=== PATIENT | female | born 1940 | race Asian ===

== ENCOUNTER 2019-12-11 18:26 | Emergency (ER) | payer MEDICARE, OTHER ==
[~2019-12-11] VITALS: Ht 149.9 cm; Wt 49.5 kg
[~2019-12-11 18:26] MED LIST: ALBU8HFA IH; AMLO10TA55 PO; ASPI81TA40 PO; BECL8.7A7 IH; CALC-26 PO; IBAN150T21 PO; LEVO25TA9 PO; LORA10TA7 PO; MAGN250T2 PO; METO-391 PO; METO25 PO; NITR0.4T50 SL; OMEP20 PO
[2019-12-11] MEDS ORDERED: BECL10.62 IH (18:52)
[2019-12-11] MEDS ORDERED: LIDOCAINE 1% 10 ML VIAL INJ ONE (19:00)
[2019-12-11 19:37] VITALS: BP 134/80
== END 2019-12-11 19:39 | disposition home or self-care (01) ==
LOC: EMS 18:26
DX: L03.011 Cellulitis of right finger (principal); I10 Essential (primary) hypertension; E78.00 Pure hypercholesterolemia, unspecified; E03.9 Hypothyroidism, unspecified; Z79.82 Long term (current) use of aspirin
CPT/HCPCS: 99283; J3490

== ENCOUNTER 2021-06-16 14:21 | Emergency (ER) | payer MEDICARE, OTHER ==
[~2021-06-16] VITALS: Ht 152.4 cm; Wt 50.9 kg
[~2021-06-16 14:21] MED LIST changes: +BECL10.62 IH; -BECL8.7A7 IH
[2021-06-16 14:26] VITALS: BP 135/97
[2021-06-16] MEDS ORDERED: HydrOXYzine PAMOATE 25 MG CAPSULE PO ONE (15:00)
[2021-06-16 15:23] LABS: BASOPHILS % (AUTO) 0.7 % (0.0-2.0); EOSINOPHILS % (AUTO) 0.6 % (1.0-6.0); HEMATOCRIT 46.5 % (36-46); HEMOGLOBIN 15.3 g/dL (12.0-16.0); LYMPHOCYTES # (AUTO) 1.4 K/uL (1.0-4.8); LYMPHOCYTES % (AUTO) 19.8 % (22.0-44.0); MEAN CORPUSCULAR HEMOGLOBIN 30.3 pg (26.0-34.0); MEAN CORPUSCULAR HGB CONC 32.8 G/dL (31.0-37.0); MEAN CORPUSCULAR VOLUME 92 fL (80-100); MONOCYTES # (AUTO) 0.4 K/uL (0.1-1.0); MONOCYTES % (AUTO) 6.2 % (2.0-9.0); NEUTROPHILS # (AUTO) 5.3 K/uL (1.8-7.7); NEUTROPHILS % (AUTO) 72.7 % (40.0-70.0); PLATELET COUNT (AUTO) 171 K/uL (150-450); RED BLOOD CELL COUNT(AUTO) 5.04 MIL/uL (4.00-5.20); RED CELL DISTRIBUTION WIDTH 14.2 % (11.5-14.5)
[2021-06-16 15:36] LABS: ANION GAP 15 mmol/L (8-16); CALCIUM, TOTAL 9.9 mg/dL (8.8-10.5); CARBON DIOXIDE 23 mmol/L (22-29); CHLORIDE 107 mmol/L (98-107); CREATININE 1.12 mg/dL (0.60-1.30); GLOMERULAR FILTR. RATE CALC 47 mL/min (>60); GLUCOSE,RANDOM 134 mg/dL (70-110); POTASSIUM 4.5 mmol/L (3.5-5.1); SODIUM SERUM 145 mmol/L (136-145); UREA NITROGEN, BLOOD 14 mg/dL (7-18)
[2021-06-16 15:42] LABS: ALANINE AMINOTRANSFERASE 35 U/L (12-78); ALBUMIN 4.2 g/dL (3.4-5.0); ALKALINE PHOSPHATASE 60 U/L (46-116); ASPARTATE AMINOTRANSFERASE 27 U/L (15-37); BILIRUBIN,TOTAL 0.7 mg/dL (0.1-1.0)
== END 2021-06-16 16:55 | disposition home or self-care (01) ==
LOC: EMS 14:21
DX: F41.9 Anxiety disorder, unspecified (principal); I10 Essential (primary) hypertension; E03.9 Hypothyroidism, unspecified; E78.00 Pure hypercholesterolemia, unspecified; Z79.899 Other long term (current) drug therapy
CPT/HCPCS: 36415; 80053; 85025; 99283; G0480

== ENCOUNTER 2021-11-13 00:15 | Emergency (ER) | payer MEDICARE, OTHER ==
[~2021-11-13] VITALS: Ht 152.4 cm; Wt 50.9 kg
[~2021-11-13 00:15] MED LIST changes: -MAGN250T2 PO; +MAGN250T35 PO
[2021-11-13] MEDS ORDERED: LEVO25TA9 PO (00:26)
[2021-11-13] MEDS ORDERED: ATOR20TA86 PO (00:26)
[2021-11-13] MEDS ORDERED: AMLO-257 PO (00:26)
[2021-11-13 01:36] VITALS: BP 141/68
== END 2021-11-13 01:39 | disposition left against medical advice (07) ==
LOC: EMS 00:16
DX: R53.1 Weakness (principal); Z53.21 Procedure and treatment not carried out due to patient leaving prior to being seen by health care provider
CPT/HCPCS: 93005